=== PATIENT | male | born 1950 | race Two or more races ===

== ENCOUNTER 2018-11-16 08:00 | Emergency (ER) | payer MEDICARE ==
[~2018-11-16] VITALS: Ht 177.8 cm; Wt 102.5 kg
[2018-11-16 08:52] VITALS: BP 127/77
[2018-11-16] MEDS ORDERED: KETOROLAC TROMETHAMINE 60 MG/2 ML VIAL IM ONE (09:00)
[2018-11-16] MEDS ORDERED: CLINDAMYCIN PHOS 600 MG/ 4 ML VIAL IM ONE (09:00)
[2018-11-16] MEDS ORDERED: HYDROCODONE/APAP 10MG-325MG TAB PO ONE (09:00)
== END 2018-11-16 09:15 | disposition home or self-care (01) ==
LOC: ER 08:00
DX: K08.89 Other specified disorders of teeth and supporting structures (principal); K02.9 Dental caries, unspecified; K04.7 Periapical abscess without sinus
CPT/HCPCS: 99282; J1885

== ENCOUNTER 2020-05-26 17:43 | Emergency (ER) | payer MEDICARE ==
[~2020-05-26] VITALS: Ht 177.8 cm; Wt 102.5 kg
--- NOTE | 2020-05-26 18:19 | Emergency Department Note ---
History of Present Illnes History of Present Illness Chief Complaint: Eye, Ear, Nose, Throat, Dental History of Present Illness This is a 69 year old Other male with reports of lower jaw/teeth pain that has been going on for over a year. Patient reports that he intended to get dental implants but due to covid has not been able to make an appointment . Historian: Patient Arrival Mode: Car Onset (how long ago): year(s) (1) Location: right lower teeth, jaw Quality: pain Radiation: Reports non-radiation Severity: moderate Onset quality: gradual Duration (how long): month(s) (12) Timing of current episode: constant Progression: unchanged Chronicity: chronic Context: Denies recent illness, Denies recent surgery, Denies recent travel Relieving factors: none Exacerbating factors: none Associated symptoms: Reports denies other symptoms Treatments prior to arrival: none Past Medical/Family History Physician Review I have reviewed the patient's past medical and family history. Any updates have been documented here. Past Medical History Recent Fever: No Clinical Suspicion of Infectio: No New/Unexplained Change in Ment: No Past Medical History: Hypertension Other Medical History: INFECTIOUS COLITIS IBS Other Surgery: R KNEE SCOPE Social History Smoking Cessation: Current every day smoker Counseling Performed: No Alcohol Use: Occasional Any Illegal Drug Use: No Family History Family history of heart diseas: No Other Any Pre-Existing Lines (PICC,: No Review of Systems Review of Systems Constitutional: Reports no symptoms EENTM: Reports as per HPI Cardiovascular: Reports no symptoms Respiratory: Reports no symptoms Gastrointestinal: Reports no symptoms Genitourinary: Reports no symptoms Musculoskeletal: Reports no symptoms Integumentary: Reports no symptoms Neurological: Reports no symptoms Psychological: Reports no symptoms Endocrine: Reports no symptoms Hematological/Lymphatic: Reports no symptoms Physical Exam Related Data Allergies: Coded Allergies: No Known Allergies (Unverified , 11/16/18) Triage Vital Signs Vital Signs Date Time Temp Pulse Resp B/P (MAP) Pulse Ox O2 Delivery O2 Flow Rate FiO2 05/26/20 18:10 97.0 72 17 157/99 99 Room Air Vital signs reviewed: Yes Physical Exam CONSTITUTIONAL Constitutional: Present well-developed, Present well-nourished; Absent distressed HENT HENT: Present normocephalic, Present atraumatic, Present oropharynx cl ear/moist, Present nose normal, Present other (extensive dental caries right lower, mild swelling of gums in same area) HENT L/R: Present left ext ear normal, Present right ext ear normal EYES Eyes: Reports PERRL, Reports conjunctivae normal NECK Neck: Present ROM normal PULMONARY Pulmonary: Present effort normal, Present breath sounds normal CARDIOVASCULAR Cardiovascular: Present regular rhythm, Present heart sounds normal, Present capillary refill normal, Present normal rate GASTROINTESTINAL Abdominal: Present soft, Present nontender, Present bowel sounds normal GENITOURINARY Genitourinary: Present exam deferred SKIN Skin: Present warm, Present dry MUSCULOSKELETAL Musculoskeletal: Present ROM normal NEUROLOGICAL Neurological: Present alert, Present oriented x 3, Present no gross motor or sensory deficits PSYCHOLOGICAL Psychological: Present mood/affect normal, Present judgement normal Assessment & Plan Medical Decision Making MDM pt with dental pain and widespread right lower dental carries discharged with augmentin 875 one po bid for 14 days tramadol 50 mg one po q 6 hours prn pain #20 Assessment & Plan Final Impression: (1) Infected dental carries (2) Pain, dental Depart Disposition: HOME, SELF-CARE Last Vital Signs Date Time Temp Pulse Resp B/P (MAP) Pulse Ox O2 Delivery O2 Flow Rate FiO2 05/26/20 18:10 97.0 72 17 157/99 99 Room Air AGUSTÍN SANDHU MD May 26, 2020 18:19
[2020-05-26 18:39] VITALS: BP 127/75
== END 2020-05-26 18:41 | disposition home or self-care (01) ==
LOC: ER 18:17
DX: K08.89 Other specified disorders of teeth and supporting structures (principal); K02.9 Dental caries, unspecified; I10 Essential (primary) hypertension; Z87.19 Personal history of other diseases of the digestive system
CPT/HCPCS: 99283

== ENCOUNTER 2023-01-30 14:46 | Emergency (ER) | payer MEDICARE ==
[~2023-01-30] VITALS: Ht 177.8 cm; Wt 104.3 kg
[2023-01-30 15:00] VITALS: O2SAT 97
[2023-01-30] MEDS ORDERED: MELOXICAM7.5 MG PO (15:21)
[2023-01-30] MEDS ORDERED: AUGMENTIN 500-1 EACH PO (15:21)
== END 2023-01-30 15:40 | disposition home or self-care (01) ==
LOC: FSED 15:37
DX: K08.89 Other specified disorders of teeth and supporting structures (principal)
CPT/HCPCS: 99282